=== PATIENT | male | born 2000 | race African-American/Black ===

== ENCOUNTER 2020-06-30 09:03 | Emergency (ER) | payer SELFPAY ==
[2020-06-30] MEDS ORDERED: Acetaminophen 500 MG TAB ONE (09:21)
[2020-06-30 17:05] LABS: SARS-CoV-2 MS2 Positive; SARS-CoV-2 N Gene Negative; SARS-CoV-2 S Gene Negative; SARS-CoV-2 by NAA Not Detected (NotDetected); SARS-CoV-2 orf1ab Negative
== END 2020-06-30 09:30 | disposition home or self-care (01) ==
LOC: ERS 09:03
DX: B34.9 Viral infection, unspecified (principal); Z20.828 Contact with and (suspected) exposure to other viral communicable diseases; F17.210 Nicotine dependence, cigarettes, uncomplicated
CPT/HCPCS: 87635; 99284; U0003

== ENCOUNTER 2021-08-12 13:41 | Emergency (ER) | payer SELFPAY | END 2021-08-12 14:20 | disposition home or self-care (01) | LOC: ERS 13:41 | DX: J36 Peritonsillar abscess (principal); F17.210 Nicotine dependence, cigarettes, uncomplicated | CPT/HCPCS: 87081; 87430; 99283 ==

== ENCOUNTER 2022-01-03 17:12 | Emergency (ER) | payer SELFPAY ==
[2022-01-03] MEDS ORDERED: Ketorolac Tromethamine 30 MG/ML VIAL ONE (17:55)
== END 2022-01-03 18:15 | disposition home or self-care (01) ==
LOC: ERS 17:12
DX: K02.9 Dental caries, unspecified (principal); F17.210 Nicotine dependence, cigarettes, uncomplicated
CPT/HCPCS: 96372; 99282; J1885

== ENCOUNTER 2022-07-29 13:42 | Emergency (ER) | payer SELFPAY ==
[2022-07-29] MEDS ORDERED: Acetaminophen 500 MG TAB ONE (13:55)
[2022-07-29] MEDS ORDERED: Ondansetron ODT 4 MG TAB ONE ×2 (14:03→14:04)
[2022-07-29 14:49] LABS: SARS-CoV-2 NAA Rapid Test Not Detected (NotDetected)
[2022-07-29] MEDS ORDERED: Dexameth. Sod Phosp. 10 MG/ML (CHEMO USE ONLY) ONE (14:51)
[2022-07-29] MEDS ORDERED: Dexamethasone 10 MG/ML VIAL ONE (14:59)
== END 2022-07-29 14:45 | disposition home or self-care (01) ==
LOC: ERS 13:42
DX: J11.1 Influenza due to unidentified influenza virus with other respiratory manifestations (principal); Z20.822 Contact with and (suspected) exposure to COVID-19; F17.210 Nicotine dependence, cigarettes, uncomplicated
CPT/HCPCS: 87081; 87430; 99284; J1100; Q0162

== ENCOUNTER 2022-08-05 12:23 | Emergency (ER) | payer SELFPAY | END 2022-08-05 13:25 | disposition home or self-care (01) | LOC: ERS 12:23 | DX: S02.5XXA Fracture of tooth (traumatic), initial encounter for closed fracture (principal); F17.200 Nicotine dependence, unspecified, uncomplicated | CPT/HCPCS: 99282 ==

== ENCOUNTER 2022-09-21 13:25 | Emergency (ER) | payer SELFPAY ==
[2022-09-21 14:20] LABS: ALT (SGPT) 33 U/L (8-55); AST (SGOT) 26 U/L (5-34); Albumin 4.3 g/dL (3.5-5.0); Alkaline Phosphatase 63 U/L (40-110); Anion Gap 14 mmol/L (10-20); BUN (Urea Nitrogen) 4 mg/dL (8.9-20.6); Bilirubin, Total 0.7 mg/dL (0.2-1.2); Calc. Creatinine Clearance 0 mL/min (70-130); Calcium 9.4 mg/dL (7.8-10.44); Carbon Dioxide 24 mmol/L (22-29); Chloride 104 mmol/L (98-107); Estimated GFR 130; Globulin 3.1 g/dL (2.4-3.5); Glucose 99 mg/dL (70-105); Potassium 3.3 mmol/L (3.5-5.1); Protein, Total 7.4 g/dL (6.0-8.3); Sodium 139 mmol/L (136-145)
[2022-09-21 14:36] LABS: Hemoglobin 15.9 g/dL (14.0-18.0); Lymphocytes 17 % (21-51); MDiff Complete? YES; Mean Corpuscular HGB CONC 33.3 g/dL (32.0-36.0); Mean Corpuscular Hemoglobin 31.3 pg (27.0-31.0); Mean Corpuscular Volume 93.9 fl (78.0-98.0); Mean Platelet Volume 7.1 fL (7.4-10.4); Monocytes 19 % (0-10); Neutrophil 59 % (42-75); Platelet Count 247 10x3/uL (130-400); Platelet Morphology Comment Appears Adequate; RBC Distribution Width 11.7 % (11.5-14.5); RBC Morphology Normal; Reactive Lymphocytes 5 % (0-10); Red Blood Cell (RBC) Count 5.07 mill/uL (4.70-6.10); White Blood Cell (WBC) Count 6.4 10x3/uL (4.8-10.8)
== END 2022-09-21 16:49 | disposition home or self-care (01) ==
LOC: ERS 13:25
DX: E86.0 Dehydration (principal); R42 Dizziness and giddiness; Z20.822 Contact with and (suspected) exposure to COVID-19; F17.210 Nicotine dependence, cigarettes, uncomplicated
CPT/HCPCS: 36415; 80053; 84484; 85025; 93005; U0003; U0005